=== PATIENT | male | born 1965 | race African-American/Black ===

== ENCOUNTER 2018-02-13 15:13 | Emergency (ER) | payer SELFPAY ==
[2018-02-13 15:20] VITALS: BP 165/100; PULSE 84; TEMP 97.6; BMI 26.4
[2018-02-13 15:41] LABS: URINE APPEARANCE CLEAR; URINE BILIRUBIN NEGATIVE (<2.0 mg/dL); URINE COLOR YELLOW; URINE GLUCOSE (UA) NEGATIVE (NEGATIVE); URINE KETONE TRACE (NEGATIVE); URINE LEUK ESTERASE NEGATIVE (NEGATIVE); URINE NITRITE NEGATIVE (NEGATIVE); URINE PROTEIN NEGATIVE (NEGATIVE)
[2018-02-13] MEDS ORDERED: AZITHROMYCIN 500 MG TABLET PO ONE (15:41)
[2018-02-13] MEDS ORDERED: AZITHROMYCIN 250 MG TABLET ONE (15:43)
--- NOTE | 2018-02-13 15:51 | PDOC ---
History of Present Illness - General Chief Complaint: Urinary Problem Stated Complaint: TESTING Time Seen by Provider: 02/13/18 15:31 History Source: Patient Exam Limitations: No Limitations - History of Present Illness Initial Comments: 02/13/18 15:44 Pt states a condom broke and the girl told him she has gonorrhea. Pt currently has penile burning and discharge. no abd pain, no pmhx. Past History - Past Medical History Allergies/Adverse Reactions: Allergies Allergy/AdvReac Type Severity Reaction Status Date / Time No Known Allergies Allergy Verified 02/13/18 15:17 - Suicide/Smoking/Psychosocial Hx Smoking History: Never smoked Hx Alcohol Use: No Drug/Substance Use Hx: No *Physical Exam - Vital Signs Last Vital Signs Temp Pulse Resp BP Pulse Ox 97.6 F 84 16 165/100 100 02/13/18 15:15 02/13/18 15:15 02/13/18 15:15 02/13/18 15:15 02/13/18 15:15 - Physical Exam General Appearance: Yes: Nourished, Appropriately Dressed HEENT: positive: EOMI, GEMMA Neck: positive: Supple Respiratory/Chest: positive: Lungs Clear, Normal Breath Sounds Cardiovascular: positive: Regular Rhythm, Regular Rate Gastrointestinal/Abdominal: positive: Normal Bowel Sounds, Soft Extremity: positive: Normal Capillary Refill, Normal Inspection, Normal Range of Motion Integumentary: positive: Normal Color, Dry, Warm Neurologic: positive: Fully Oriented, Alert, Normal Mood/Affect, Normal Response , Motor Strength 5/5 Medical Decision Making - Medical Decision Making 02/13/18 15:46 cc: penile discharge, exposed to gonorrhea. will check RPR, pt states he had negative HIV 2 months ago refuses HIV today. will treat for Gc/chlamydia 02/13/18 15:53 repeat BP 145/90 manual pt has no headache or other complaints. 02/18/18 08:17 *DC/Admit/Observation/Transfer Diagnosis at time of Disposition: STD exposure - Discharge Dispostion Disposition: HOME Condition at time of disposition: Good - Referrals Referrals: Jose Angel Frazier MD [Staff Physician] - - Patient Instructions Additional Instructions: follow with the urologist for follow up if any worsening or continuing symptoms follow with the [facility] for HIV testing next month always use condoms do not have any sexual activity until your symptoms have resolved - Post Discharge Activity
== END 2018-02-13 15:59 | disposition home or self-care (01) ==
LOC: JERFT 15:13
DX: Z20.2 Contact with and (suspected) exposure to infections with a predominantly sexual mode of transmission (principal)
CPT/HCPCS: 36415; 81003; 86593; 87086; 87491; 87591; 99281-25